=== PATIENT | female | born 1960 | race African-American/Black ===

== ENCOUNTER 2018-01-13 08:11 | Emergency (ER) | payer OTHER ==
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
[2018-01-13] MEDS ORDERED: DIPHTH/TETANUS/ACEL. PERTUSSIS IM ONLY ONE (08:20)
[2018-01-13] MEDS ORDERED: ACETAMINOPHEN 500 MG TAB PO ONE (08:25)
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
[2018-01-13] MEDS ORDERED: NITR-1 PO (09:03)
[2018-01-13 09:09] VITALS: BP 157/103
== END 2018-01-13 09:35 | disposition home or self-care (01) ==
LOC: ER 09:24
DX: N39.0 Urinary tract infection, site not specified (principal); S00.81XA Abrasion of other part of head, initial encounter; V68.1XXA Passenger in heavy transport vehicle injured in noncollision transport accident in nontraffic accident, initial encounter
CPT/HCPCS: 70450; 81001; 90471; 90715; 99284